=== PATIENT | male | born 1985 | race Caucasian/White ===

== ENCOUNTER 2021-05-27 15:48 | Emergency (ER) | payer SELFPAY | END 2021-05-27 17:55 | disposition home or self-care (01) | LOC: ER1 15:48 | DX: M25.511 Pain in right shoulder (principal) | CPT/HCPCS: 73030; 99283 ==

== ENCOUNTER → 2021-07-16 | Outpatient (CLI) | payer OTHER | LOC: KOH-I 07-15 13:30 | DX: S42.101A Fracture of unspecified part of scapula, right shoulder, initial encounter for closed fracture (principal); X58.XXXA Exposure to other specified factors, initial encounter; R93.6 Abnormal findings on diagnostic imaging of limbs | CPT/HCPCS: 73200 ==